=== PATIENT | male | born 1990 | race Two or more races ===

== ENCOUNTER 2016-03-18 18:10 | Emergency (ER) | payer BC ==
[~2016-03-18] VITALS: Ht 165.1 cm; Wt 63.5 kg
[2016-03-18 18:47] VITALS: BP 115/56
[2016-03-18] MEDS ORDERED: IBUPROFEN 400 MG TABLET ONE (19:09)
[2016-03-18] MEDS ORDERED: ACETAMINOPHEN ES 500 MG TABLET ONE (19:09)
[2016-03-18] MEDS ORDERED: ACETAMINOPHEN ES 500 MG TABLET PO ONE (19:30)
[2016-03-18] MEDS ORDERED: IBUPROFEN 400 MG TABLET PO ONE (19:30)
== END 2016-03-18 19:32 | disposition home or self-care (01) ==
LOC: ER 18:11
DX: S20.212A Contusion of left front wall of thorax, initial encounter (principal); S80.02XA Contusion of left knee, initial encounter; E07.9 Disorder of thyroid, unspecified; V49.9XXA Car occupant (driver) (passenger) injured in unspecified traffic accident, initial encounter; Y93.89 Activity, other specified; Y92.413 State road as the place of occurrence of the external cause; Y99.8 Other external cause status
CPT/HCPCS: 99283; A4606; Z7610

== ENCOUNTER 2020-03-26 13:35 | Emergency (ER) | payer BC, MEDICAID ==
[~2020-03-26] VITALS: Ht 165.1 cm; Wt 63.5 kg
[2020-03-26 13:45] VITALS: BP 117/79
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
--- NOTE | 2020-03-26 14:00 | NUR ---
xray by bedside
--- NOTE | 2020-03-26 14:20 | NUR ---
Patient discharged to home in stable condition. Written and verbal after care instructions given. Patient verbalizes understanding of instruction.
== END 2020-03-26 14:20 | disposition home or self-care (01) ==
LOC: ER 13:42
DX: M54.2 Cervicalgia (principal); M79.674 Pain in right toe(s); M54.5 Low back pain; E07.9 Disorder of thyroid, unspecified; V49.69XA Unspecified car occupant injured in collision with other motor vehicles in traffic accident, initial encounter; Y93.89 Activity, other specified; Y92.413 State road as the place of occurrence of the external cause; Y99.8 Other external cause status
CPT/HCPCS: 73660-TC